=== PATIENT | male | born 2000 | race American Indian/Alaskan Native ===

== ENCOUNTER 2022-01-25 22:00 | Inpatient (IN) | payer OTHER ==
[2022-01-25] MEDS ORDERED: IBUPROFEN 800 MG TAB PO ONE (23:04)
--- NOTE | 2022-01-25 23:27 | XRay Report ---
Right ankle 2 views INDICATION: Right ankle pain following injury IMPRESSION: Severe dislocation of the right ankle with posterior displacement of the talar head with respect to the tibial plafond. Several tiny avulsion fractures are identified along the anterior aspe ct of the joint. There is a displaced fracture involving the distal metaphysis of the right fibula. Signer Name: Mani Limon MD Signed: 01/25/2022 11:23 PM Workstation Name: [id number]
[2022-01-25] MEDS ORDERED: propofoL 200 MG/20 ML VIAL IV ONE (23:41)
[2022-01-26] MEDS ORDERED: SODIUM CHLORIDE 0.9% 1000 ML 1,000 ML ONE (00:08)
[2022-01-26] MEDS ORDERED: KETAMINE 500 MG/5 ML VIAL MDV IV ONE (00:41)
--- NOTE | 2022-01-26 00:55 | XRay Report ---
Right ankle single view INDICATION: Right ankle pain IMPRESSION: Persistent dislocation of the right ankle. Signer Name: Mani Limon MD Signed: 01/26/2022 12:50 AM Workstation Name: [email or web address]
--- NOTE | 2022-01-26 01:37 | XRay Report ---
Right ankle 2 views INDICATION: Right ankle pain following injury IMPRESSION: Improved anatomic alignment of the ankle following reduction. Comminuted fracture of the distal fibular metaphysis. Overlying cast noted. Signer Name: Mani Limon MD Signed: 01/26/2022 1:32 AM Workstation Name: [employer]
--- NOTE | 2022-01-26 02:52 | Emergency Department Report ---
ED Lower Extremity HPI - General Chief Complaint: Extremity Injury, Lower Stated Complaint: RT ANKLE PAIN Time Seen by Provider: 01/25/22 22:10 Source: patient, EMS Mode of arrival: Stretcher Limitations: Physical Limitation - History of Present Illness Initial Comments: Patient is a 21-year-old male brought in from [facility] for evaluation of right ankle pain after twisting it while attempting to get out of bed. Complaint: ankle injury -: This afternoon Injury: Ankle: Right Place: other (Detention) Severity: severe Severity scale (0 -10): 10 Improves With: nothing Worsens With: movement, palpation Context: other (Exact mechanism unclear however patient states he twisted his ankle) Associated Symptoms: swelling, unable to bear weight - Related Data Allergies Allergy/AdvReac Type Severity Reaction Status Date / Time No Known Allergies Allergy Verified 01/25/22 23:33 ED Review of Systems ROS: Stated complaint: RT ANKLE PAIN Other details as noted in HPI Comment: All other systems reviewed and negative Constitutional: denies: chills, fever Respiratory: denies: cough, shortness of breath, wheezing Cardiovascular: denies: chest pain, palpitations Gastrointestinal: denies: abdominal pain, nausea, diarrhea Genitourinary: denies: urgency, dysuria Skin: denies: rash, lesions Neurological: denies: headache, weakness, paresthesias Psychiatric: denies: anxiety, depression Hematological/Lymphatic: denies: easy bleeding, easy bruising ED Past Medical Hx - Past Medical History Previous Medical History?: No Hx Psychiatric Treatment: Yes (Schizophrenia) - Surgical History Past Surgical History?: No ED Physical Exam - General Limitations: Physical Limitation General appearance: alert, in no apparent distress, obese - Head Head exam: Present: atraumatic, normocephalic - Eye Eye exam: Present: normal appearance, EOMI - Respiratory Respiratory exam: Present: normal lung sounds bilaterally. Absent: respiratory distress - Cardiovascular Cardiovascular Exam: Present: regular rate, normal rhythm. Absent: systolic murmur, diastolic murmur, rubs, gallop - GI/Abdominal GI/Abdominal exam: Present: soft, normal bowel sounds - Rectal Rectal exam: Present: deferred - Extremities Exam Extremities exam: Present: other (Diffuse swelling and tenderness to right ankle. DP and PT pulses intact.) - Neurological Exam Neurological exam: Present: alert, oriented X3 - Psychiatric Psychiatric exam: Present: normal affect, normal mood - Skin Skin exam: Present: warm, dry, intact ED Course Vital Signs 01/25/22 01/25/22 01/25/22 22:45 22:51 23:01 Temperature 99.1 F Pulse Rate 82 Respiratory 18 Rate Blood Pressure 162/62 Blood Pressure 139/71 [Right] O2 Sat by Pulse 96 100 98 Oximetry 01/25/22 01/25/22 01/25/22 23:15 23:31 23:45 Temperature Pulse Rate Respiratory Rate Blood Pressure 148/86 148/86 148/86 Blood Pressure [Right] O2 Sat by Pulse 99 100 99 Oximetry 01/26/22 01/26/22 01/26/22 00:01 00:15 00:25 Temperature 98.7 F Pulse Rate 76 87 78 Respiratory 17 15 18 Rate Blood Pressure 156/89 166/109 Blood Pressure 116/109 [Right] O2 Sat by Pulse 99 99 98 Oximetry 01/26/22 01/26/22 01/26/22 00:28 00:31 00:45 Temperature Pulse Rate 78 115 H 97 H Respiratory 18 22 17 Rate Blood Pressure 180/112 146/115 Blood Pressure 116/108 [Right] O2 Sat by Pulse 100 99 99 Oximetry 01/26/22 01/26/22 01/26/22 01:01 01:15 01:16 Temperature Pulse Rate 113 H 100 H 94 H Respiratory 12 12 12 Rate Blood Pressure 167/63 138/96 Blood Pressure [Right] O2 Sat by Pulse 100 100 Oximetry 01/26/22 01:31 Temperature Pulse Rate Respiratory 21 Rate Blood Pressure 144/88 Blood Pressure [Right] O2 Sat by Pulse 100 Oximetry - Moderate Sedation Indications: fracture/dislocation redu ASA Class: I Mallampati Airway Score: 2 Preparation: registered nurse cardiac applied, pulse oximeter, supplemental O2 applied, reversal agents at bedside, suction/airway equipment at bedside, IV secured Ketamine: IV (These were 2 separate conscious sedations. Initially propofol was used however patient would flail during the reduction which was unsuccessful. Ketamine used during the second sedation resulting in successful reduction.) Ketamine Dose: 145 IV Propofol Dose (mgs): 190 Complications: none Patient Tolerated Procedure: well - Orthopedic Joint Reduction Joint #1 Consent Obtained: written consent Time Out Performed: Yes Side: right Joint Reduction Location: ankle Analgesia: moderate sedation Technique Used: traction/counter-traction Post-Reduction Neuro Exam: intact Post-Reduction Vascular Exam: intact Post Reduction X-Ray Obtained: Yes Post Reduction X-Ray Results: reduced Splint Applied: Yes Patient Tolerated Procedure: well - Orthopedic Splinting/Casting Injury #1 Side: right Lower Extremity Injury Location: ankle Lower Extremity Immobilizer: posterior splint, stirrup splint ED Lower Extremity MDM - Medical Decision Making Ankle reduced in the emergency department. I discussed case with on-call orthopedist Dr. Campoverde. Request admission to hospital service and will evaluate later today. Critical care attestation.: If time is entered above; I have spent that time in minutes in the direct care of this critically ill patient, excluding procedure time. ED Disposition Clinical Impression: Dislocation of ankle, right, closed, Closed right fibular fracture Disposition: ADMITTED INPATIENT Is pt being admited?: Yes Does the pt Need Aspirin: No Condition: Stable Referrals: PRIMARY CARE, [Primary Care Provider] - 3-5 Days
[2022-01-26] MEDS ORDERED: ACETAMINOPHEN 325 MG TAB PO PRN (03:09)
[2022-01-26] MEDS ORDERED: MAGNESIUM HYDROXIDE (MOM) ORAL LIQD UDC PO PRN (03:09)
[2022-01-26] MEDS ORDERED: ONDANSETRON 4 MG/2 ML INJ IV PRN (03:09)
[2022-01-26] MEDS ORDERED: SODIUM CHLORIDE 0.9% 1000 ML 1,000 ML IV SCH (03:15)
[2022-01-26 03:16] LABS: Basophils # (Auto) 0.1 K/mm3 (0.0-0.1); Basophils % (Auto) 0.5 % (0.0-1.8); Eosinophils # (Auto) 0.1 K/mm3 (0.0-0.4); Eosinophils % (Auto) 0.8 % (0.0-4.3); Hematocrit 40.3 % (35.5-45.6); Hemoglobin 12.8 gm/dl (11.8-15.2); Lymphocytes # (Auto) 1.4 K/mm3 (1.2-5.4); Lymphocytes % (Auto) 12.4 % (13.4-35.0); Mean Corpuscular HGB Conc 32 % (32-34); Mean Corpuscular Volume 87 fl (84-94); Monocytes # (Auto) 0.7 K/mm3 (0.0-0.8); Monocytes % (Auto) 6.4 % (0.0-7.3); Platelet Count 274 K/mm3 (140-440); Red Blood Count 4.66 M/mm3 (3.65-5.03); Red Cell Distribution Width 15.7 % (13.2-15.2)
[2022-01-26 03:25] LABS: INR 0.98 (0.87-1.13)
--- NOTE | 2022-01-26 03:31 | History and Physical Report ---
History of Present Illness Date of examination: 01/26/22 Date of admission: 01/26/2022 Chief complaint: Right ankle Pain History of present illness: 21-year-old -Gren[place] male with no significant past medical history currently incarcerated at [facility] brought into the emergency room today for evaluation of right ankle pain. Patient states he was attempting to get out of his bed when he suddenly twisted his ankle he has been having severe pain since then. He denies any other complaints at this time. Denies any headache or dizziness and denies having any head injury. Work-up in the emergency room today including x-ray of the right ankle reveals severe dislocation of the right ankle with posterior displacement of the talar head . There is a displaced fracture involving the distal metaphysis of the right fibula. Fracture was successfully reduced in the emergency room. Orthopedic surgeon was also consulted by the ER physician. Past History Past Medical History: other (Bipolar disorder, schizophrenia) Past Surgical History: No surgical history Social history: no significant social history Family history: no significant family history Medications and Allergies Allergies Allergy/AdvReac Type Severity Reaction Status Date / Time shellfish derived Allergy Mild Angioedema Verified 01/26/22 03:01 tree nut Allergy Mild Angioedema Verified 01/26/22 03:02 Active Meds: Active Medications Acetaminophen (Acetaminophen 325 Mg Tab) 650 mg PO Q4H PRN PRN Reason: Pain MILD(1-3)/Fever >100.5/IRVIN Sodium Chloride (Nacl 0.9% 1000 Ml) 1,000 mls @ 75 mls/hr IV DIRECT MEENA Magnesium Hydroxide (Magnesium Hydroxide (Mom) Oral Liqd Udc) 30 ml PO Q4H PRN PRN Reason: Constipation Morphine Sulfate (Morphine 2 Mg/1 Ml Inj) 2 mg IV Q4H PRN PRN Reason: Pain, Moderate (4-6) Morphine Sulfate (Morphine 4 Mg/1 Ml Inj) 4 mg IV Q4H PRN PRN Reason: Pain , Severe (7-10) Ondansetron HCl (Ondansetron 4 Mg/2 Ml Inj) 4 mg IV Q8H PRN PRN Reason: Nausea And Vomiting Sodium Chloride (Sodium Chloride 0.9% 10 Ml Flush Syringe) 10 ml IV BID MEENA Sodium Chloride (Sodium Chloride 0.9% 10 Ml Flush Syringe) 10 ml IV PRN PRN PRN Reason: LINE FLUSH Review of Systems Constitutional: no fever, no chills Ears, nose, mouth and throat: no nasal congestion, no sore throat Cardiovascular: no chest pain, no palpitations Respiratory: no cough, no shortness of breath Gastrointestinal: no abdominal pain, no nausea, no vomiting, no diarrhea Genitourinary Male: no dysuria, no hematuria, no flank pain, no nocturia, no genital pain Musculoskeletal: no neck pain, no low back pain Integumentary: no rash, no pruritis Neurological: no headaches, no confusion Psychiatric: no anxiety, no depression Endocrine: no polyphagia, no polydipsia, no polyuria, no nocturia Exam - Constitutional Vitals: Temp Pulse Resp BP Pulse Ox 98.7 F 94 H 21 139/91 100 01/26/22 00:25 01/26/22 01:16 01/26/22 03:01 01/26/22 03:01 01/26/22 03:01 General appearance: Present: no acute distress, well-nourished, obese - EENT Eyes: Present: PERRL, EOM intact. Absent: scleral icterus ENT: hearing intact, clear oral mucosa, dentition normal - Neck Neck: Present: supple, normal ROM - Respiratory Respiratory effort: normal Respiratory: bilateral: CTA - Cardiovascular Rhythm: regular Heart Sounds: Present: S1 & S2. Absent: systolic murmur, diastolic murmur - Extremities Extremities: no ischemia, pulses intact, pulses symmetrical, No edema, normal temperature, normal color, Full ROM Peripheral Pulses: within normal limits - Abdominal General gastrointestinal: Present: soft, non-tender, non-distended, normal bowel sounds. Absent: mass - Integumentary Integumentary: Present: clear, warm, dry, normal turgor. Absent: rash - Musculoskeletal Musculoskeletal: strength equal bilaterally - Psychiatric Psychiatric: appropriate mood/affect, intact judgment & insight, memory intact, cooperative - Neurologic Neurologic: CNII-XII intact, no focal deficits, moves all extremities Results - Labs CBC & Chem 7: 01/26/22 02:24 01/26/22 02:24 Assessment and Plan - Patient Problems (1) Dislocation of ankle, right, closed Current Visit: Yes Status: Acute Plan to address problem: Dislocation and fracture reduced in the ER. Patient placed on analgesic medication. Consult placed to orthopedic surgeon for further evaluation. (2) DVT prophylaxis Current Visit: Yes Status: Acute Plan to address problem: Patient placed on sequential compression device. (3) Full code status Current Visit: Yes Status: Acute Plan to address problem: Patient is full code.
[2022-01-26 03:33] LABS: Alanine Aminotransferase 17 units/L (7-56); Albumin 3.7 g/dL (3.9-5); BUN/Creatinine Ratio 10; Blood Urea Nitrogen 8 mg/dL (9-20); Calcium 8.7 mg/dL (8.4-10.2); Hemolysis Index 4
[2022-01-26 03:36] LABS: Bilirubin,Direct < 0.2 mg/dL (0-0.2)
--- NOTE | 2022-01-26 10:22 | Consultation ---
History of Present Illness - HPI Consult date: 01/26/22 History of present illness: ORTHOPAEDIC CONSULT Assessment: 1. Posterior ankle dislocation (tibiotalar) with isolated fracture fibular shaft distal one third , RIGHT ankle 2. Morbidly obese young adult male (incarcerated ) with deconditioning; RECOMMENDATIONS : 1. Apply fracture boot (will need size 2XL or 3XL );(can be worn with or without a sock or Cezar wrap ) 2. Gait training with crutches; PT will have to educate NOW. 3. LORTAB 5/325 1 tab PO q 6hrs as needed for fracture pain for the next 7 days minimum; 4. F/U in the ortho OFFICE in 2 weeks with new ankle films; Discussion: This is a 21 year-old -[place] male inmate who somehow tripped and fell last evening while getting up from a supine position sustaining a twisting injury to the right ankle. He was brought to the emergency room at [facility] where x-rays revealed a posterior dislocation of the talus with respect to the tibia and a proximal diaphyseal fracture of the fibula at the distal one third. Emergency room physician adequately reduce the ankle joint and applied a posterior splint. Was then admitted by the hospitalist for overnight observation. Lamination today at the bedside shows a young adult male large frame morbidly obese. Is a posterior splint in place. Mild to moderate swelling laterally and toes are neurovascularly intact. Xrays post reduction , show what appears to be a stable mortise with a short oblique fracture at the junction of the middle and distal one third of the fibula. No other fractures or dislocations are seen. Past History Past Medical History: other (Bipolar disorder, schizophrenia) Past Surgical History: No surgical history Social history: no significant social history Family history: no significant family history Medications and Allergies Allergies Allergy/AdvReac Type Severity Reaction Status Date / Time shellfish derived Allergy Mild Angioedema Verified 01/26/22 03:01 tree nut Allergy Mild Angioedema Verified 01/26/22 03:02 Active Meds: Active Medications Acetaminophen (Acetaminophen 325 Mg Tab) 650 mg PO Q4H PRN PRN Reason: Pain MILD(1-3)/Fever >100.5/IRVIN Sodium Chloride (Nacl 0.9% 1000 Ml) 1,000 mls @ 75 mls/hr IV DIRECT MEENA Last Admin: 04/13/22 04:56 Dose: 75 mls/hr Magnesium Hydroxide (Magnesium Hydroxide (Mom) Oral Liqd Udc) 30 ml PO Q4H PRN PRN Reason: Constipation Morphine Sulfate (Morphine 2 Mg/1 Ml Inj) 2 mg IV Q4H PRN PRN Reason: Pain, Moderate (4-6) Morphine Sulfate (Morphine 4 Mg/1 Ml Inj) 4 mg IV Q4H PRN PRN Reason: Pain , Severe (7-10) Ondansetron HCl (Ondansetron 4 Mg/2 Ml Inj) 4 mg IV Q8H PRN PRN Reason: Nausea And Vomiting Sodium Chloride (Sodium Chloride 0.9% 10 Ml Flush Syringe) 10 ml IV BID MEENA Last Admin: 01/26/22 09:23 Dose: 10 ml Sodium Chloride (Sodium Chloride 0.9% 10 Ml Flush Syringe) 10 ml IV PRN PRN PRN Reason: LINE FLUSH
--- NOTE | 2022-01-26 17:05 | Progress Note ---
Assessment and Plan Assessment and plan: 21-year-old -[place]vad[place] male with no significant past medical history currently incarcerated at [facility] brought into the emergency room today for evaluation of right ankle pain. Patient states he was attempting to get out of his bed when he suddenly twisted his ankle he has been having severe pain since then. He denies any other complaints at this time. Denies any headache or dizziness and denies having any head injury. Work-up in the emergency room today including x-ray of the right ankle reveals severe dislocation of the right ankle with posterior displacement of the talar head . There is a displaced fracture involving the distal metaphysis of the right fibula. Fracture was successfully reduced in the emergency room. Orthopedic surgeon was also consulted by the ER physician. (1) fracture of dislocation of ankle, right, closed Current Visit: Yes Status: Acute Plan to address problem: Dislocation and fracture reduced in the ER and a plaster applied. Patient placed on analgesic medication. Several orthopedic in consultation and finds the fracture dislocation is appropriately reduced. Orthopedic recommendations: 1. Posterior ankle dislocation (tibiotalar) with isolated fracture fibular shaft distal one third , RIGHT ankle RECOMMENDATIONS : 1. Apply fracture boot (will need size 2XL or 3XL );(can be worn with or without a sock or Cezar wrap ) 2. Gait training with crutches; PT will have to educate NOW. 3. LORTAB 5/325 1 tab PO q 6hrs as needed for fracture pain for the next 7 days minimum; 4. F/U in the ortho OFFICE in 2 weeks with new ankle films; (2) DVT prophylaxis Current Visit: Yes Status: Acute Plan to address problem: Patient placed on sequential compression device. (3) Full code status Current Visit: Yes Status: Acute Plan to address problem: Patient is full code. Disposition: Patient could not be discharged back to halfway today since a fracture boot needs to be applied and PT has to perform a gait training before discharge. I spoke to the nurse as well as family caseworker but PT not available this a fternoon to gait train the patient and unfortunately patient will have to stay until tomorrow to get this done.. History Interval history: Patient is extremity obese, sleeping, easily arousable, no acute distress. Right ankle plaster in place. Discharge is pending fracture boot and PT training before discharge back to halfway. Hospitalist Physical - Constitutional Vitals: Temp Pulse Resp BP Pulse Ox 98.9 F 87 24 150/86 99 01/26/22 11:59 01/26/22 11:59 01/26/22 11:59 01/26/22 11:59 01/26/22 11:59 General appearance: Present: no acute distress, obese (Extremely obese) - EENT Eyes: Present: PERRL, EOM intact ENT: hearing intact - Neck Neck: Present: supple - Respiratory Respiratory effort: normal Respiratory: bilateral: CTA - Cardiovascular Rhythm: regular - Extremities Extremity abnormal: other (Right ankle plaster in place.) - Abdominal General gastrointestinal: soft, non-tender - Neurologic Neurologic: no focal deficits, moves all extremities Results - Labs CBC & Chem 7: 01/26/22 02:24 01/26/22 02:24 Labs: Laboratory Last Values WBC 11.0 K/mm3 (4.5-11.0) 01/26/22 02:24 RBC 4.66 M/mm3 (3.65-5.03) 01/26/22 02:24 Hgb 12.8 gm/dl (11.8-15.2) 01/26/22 02:24 Hct 40.3 % (35.5-45.6) 01/26/22 02:24 MCV 87 fl (84-94) 01/26/22 02:24 MCH 27 pg (28-32) L 01/26/22 02:24 MCHC 32 % (32-34) 01/26/22 02:24 RDW 15.7 % (13.2-15.2) H 01/26/22 02:24 Plt Count 274 K/mm3 (140-440) 01/26/22 02:24 Lymph % (Auto) 12.4 % (13.4-35.0) L 01/26/22 02:24 [place] % (Auto) 6.4 % (0.0-7.3) 01/26/22 02:24 Eos % (Auto) 0.8 % (0.0-4.3) 01/26/22 02:24 Baso % (Auto) 0.5 % (0.0-1.8) 01/26/22 02:24 Lymph # (Auto) 1.4 K/mm3 (1.2-5.4) 01/26/22 02:24 [place] # (Auto) 0.7 K/mm3 (0.0-0.8) 01/26/22 02:24 Eos # (Auto) 0.1 K/mm3 (0.0-0.4) 01/26/22 02:24 Baso # (Auto) 0.1 K/mm3 (0.0-0.1) 01/26/22 02:24 Seg Neutrophils % 79.9 % (40.0-70.0) H 01/26/22 02:24 Seg Neutrophils # 8.8 K/mm3 (1.8-7.7) H 01/26/22 02:24 PT 14.1 Sec. (12.2-14.9) 01/26/22 02:24 INR 0.98 (0.87-1.13) 01/26/22 02:24 Sodium 137 mmol/L (137-145) 01/26/22 02:24 Potassium 3.8 mmol/L (3.6-5.0) 01/26/22 02:24 Chloride 101.8 mmol/L (98-107) 01/26/22 02:24 Carbon Dioxide 21 mmol/L (22-30) L 01/26/22 02:24 Anion Gap 18 mmol/L 01/26/22 02:24 BUN 8 mg/dL (9-20) L 01/26/22 02:24 Creatinine 0.8 mg/dL (0.8-1.3) 01/26/22 02:24 Estimated GFR > 60 ml/min 01/26/22 02:24 BUN/Creatinine Ratio 10 % 01/26/22 02:24 Glucose 92 mg/dL (75-100) 01/26/22 02:24 Calcium 8.7 mg/dL (8.4-10.2) 01/26/22 02:24 Total Bilirubin 0.60 mg/dL (0.1-1.2) 01/26/22 02:24 Direct Bilirubin < 0.2 mg/dL (0-0.2) 01/26/22 02:24 Indirect Bilirubin 0.4 mg/dL 01/26/22 02:24 AST 18 units/L (5-40) 01/26/22 02:24 ALT 17 units/L (7-56) 01/26/22 02:24 Alkaline Phosphatase 132 units/L (35-129) H 01/26/22 02:24 Total Protein 6.6 g/dL (6.3-8.2) 01/26/22 02:24 Albumin 3.7 g/dL (3.9-5) L 01/26/22 02:24 Albumin/Globulin Ratio 1.3 % 01/26/22 02:24 Blood Type AB POSITIVE 01/26/22 02:24 Antibody Screen Negative 01/26/22 02:24 [place]/IV: Voiding Method Urinal Active Medications - Current Medications Current Medications: Generic Name Dose Route Start Last Admin Trade Name Freq PRN Reason Stop Dose Admin Acetaminophen 650 mg 01/26/22 03:09 Acetaminophen 325 Mg Tab PO Q4H PRN Pain MILD(1-3)/Fever >100.5/IRVIN Sodium Chloride 1,000 mls @ 75 mls/hr 01/26/22 03:15 01/26/22 04:56 Nacl 0.9% 1000 Ml IV 75 mls/hr DIRECT MEENA Administration Magnesium Hydroxide 30 ml 01/26/22 03:09 Magnesium Hydroxide (Mom) Oral Liqd Udc PO Q4H PRN Constipation Morphine Sulfate 2 mg 01/26/22 03:09 Morphine 2 Mg/1 Ml Inj IV Q4H PRN Pain, Moderate (4-6) Morphine Sulfate 4 mg 01/26/22 03:09 Morphine 4 Mg/1 Ml Inj IV Q4H PRN Pain , Severe (7-10) Ondansetron HCl 4 mg 01/26/22 03:09 Ondansetron 4 Mg/2 Ml Inj IV Q8H PRN Nausea And Vomiting Sodium Chloride 10 ml 01/26/22 10:00 01/26/22 09:23 Sodium Chloride 0.9% 10 Ml Flush Syringe IV 10 ml BID MEENA Administration Sodium Chloride 10 ml 01/26/22 03:09 Sodium Chloride 0.9% 10 Ml Flush Syringe IV PRN PRN LINE FLUSH Nutrition/Malnutrition Assess - Dietary Evaluation Nutrition/Malnutrition Findings: Nutrition Notes Start: 01/26/22 11 :00 Freq: Status: Active Protocol: Document 01/26/22 11:00 GAMAL (Rec: 01/26/22 11:19 GAMAL [id number]) Nutrition Notes Need for Assessment generated from: dental technologist Initial or Follow up Assessment Other Pertinent Diagnosis R-Ankle disclocation/Fracture. Current Diet NPO (since 01/26 03:11). Labs/Tests 01/26: CO2 21, BUN 8. Pertinent Medications 01/26: Nutritionally unremarkable. 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 Weight Status Morbidly Obese Subjective/Other Information RD consult for skin risk assessment Pt currently on NPO. Pt is on Room Air, O2 saturation @ 98%, according to Physical Assessment History notes. Pt is incarcerated, according to History & Physical notes. Pt presents a close R-Ankle Dislocation/Fracture with no signs of concern for skin risk atr the time, according to Orthpedic Consultation notes. Percent of energy/protein needs met: Pt currently on NPO. Burn Absent Trauma Absent GI Symptoms None Food Allergy Yes Skin Integrity/Comment Assessment WNL. Current % PO Other Minimum of two criteria No #1 Nutrition Diagnosis No nutrition diagnosis at this time Comments: Will assess Pt's PO intake of meals at F/U. Is patient on ventilator? No Is Patient Ambulatory and/or Out of Bed Yes REE-(Dooly-St. Jeor-ambulatory/OOB) [ 3600.025 NUTR.[id number]] Kcal/Kg value to use for calculation 12 Approximate Energy Requirements Using 2104 kcal/Kg Calculation Used for Recommendations Kcal/kg Additional Notes Protein: 0.8-1 g/Kg AdjBW; 100 -125 g/day. Fluids: 1 ml/Kcal, or as per MD. Nutrition Intervention Change Diet Order: Advance to PO diet, as per MD. Follow-Up By: 02/04/22 Additional Comments Continue monitoring food tolerance, %PO intake of meals , and BM.
[2022-01-26] MEDS: MORPHINE 2 MG/1 ML INJ IV PRN ×2 (17:52→22:53)
[2022-01-27 06:23] LABS: Basophils # (Auto) 0.1 K/mm3 (0.0-0.1); Basophils % (Auto) 0.6 % (0.0-1.8); Eosinophils # (Auto) 0.2 K/mm3 (0.0-0.4); Eosinophils % (Auto) 2.2 % (0.0-4.3); Hematocrit 38.8 % (35.5-45.6); Hemoglobin 12.8 gm/dl (11.8-15.2); Lymphocytes % (Auto) 20.7 % (13.4-35.0); Mean Corpuscular HGB Conc 33 % (32-34); Mean Corpuscular Volume 85 fl (84-94); Monocytes # (Auto) 1.1 K/mm3 (0.0-0.8); Platelet Count 254 K/mm3 (140-440); Red Blood Count 4.57 M/mm3 (3.65-5.03); Red Cell Distribution Width 15.9 % (13.2-15.2)
[2022-01-27 06:42] LABS: BUN/Creatinine Ratio 9; Blood Urea Nitrogen 7 mg/dL (9-20); Calcium 8.2 mg/dL (8.4-10.2); Hemolysis Index 6
[2022-01-27 06:53] VITALS: BP 139/87
--- NOTE | 2022-01-27 13:46 | Discharge Summary ---
Providers - Providers Date of Admission: 01/26/22 03:20 Date of discharge: 01/27/22 Attending physician: MANFRED JOHNSON 01/26/22 03:09 Consult to Physician [CONS] Routine Comment: Dr. Dixon spoke with Dr. Campoverde @ [phone] Consulting Provider: REBECCA CAMPOVERDE Physician Instructions: Reason For Exam: Right ankle fracture 01/26/22 15:21 Physical Therapy Evaluation and Treat [CONS] Urgent Comment: Reason For Exam: right ankle fracture Date of last referral: 01/26/22 Primary care physician: PHARMACY MANAGER Hospitalization Reason for admission: Fracture right ankle Condition: Stable Procedures: Medical management with dressing and boot Hospital course: 21-year-old -[place] male with no significant past medical history currently incarcerated at [facility] brought into the emergency room today for evaluation of right ankle pain. Patient states he was attempting to get out of his bed when he suddenly twisted his ankle he has been having severe pain since then. He denies any other complaints at this time. Denies any headache or dizziness and denies having any head injury. Work-up in the emergency room today including x-ray of the right ankle reveals severe dislocation of the right ankle with posterior displacement of the talar head . There is a displaced fracture involving the distal metaphysis of the right fibula. Fracture was successfully reduced in the emergency room. Orthopedic surgeon was also consulted by the ER physician. (1) fracture of dislocation of ankle, right, closed Current Visit: Yes Status: Acute Plan to address problem: Dislocation and fracture reduced in the ER and a plaster applied. Patient placed on analgesic medication. Several orthopedic in consultation and finds the fracture dislocation is appropriately reduced. Orthopedic recommendations: 1. Posterior ankle dislocation (tibiotalar) with isolated fracture fibular shaft distal one third , RIGHT ankle RECOMMENDATIONS : 1. Apply fracture boot (will need size 2XL or 3XL );(can be worn with or without a sock or Cezar wrap ) 2. Gait training with crutches; PT consulted and note reviewed 3. LORTAB 5/325 1 tab PO q 6hrs as needed for fracture pain for the next 7 days minimum; 4. F/U in the ortho OFFICE in 2 weeks with new ankle films; Disposition: 30 STILL A PATIENT Final Discharge Diagnosis (Prints w/discharge instructions): Nondisplaced acute fracture distal right fibula with posterior ankle dislocation. Morbid obesity. History of bipolar disorder and schizophrenia Time spent for discharge: 34 min Core Measure Documentation - Palliative Care Palliative Care/ Comfort Measures: Not Applicable - Core Measures Any of the following diagnoses?: none Exam - Constitutional Vitals: Temp Pulse Resp BP Pulse Ox 98.7 F 83 22 139/87 96 01/27/22 05:46 01/27/22 05:46 01/27/22 05:46 01/27/22 05:46 01/27/22 05:46 General appearance: Present: no acute distress, obese - EENT Eyes: Present: PERRL, EOM intact ENT: hearing intact, clear oral mucosa - Neck Neck: Present: supple, normal ROM - Respiratory Respiratory effort: normal Respiratory: bilateral: CTA, diminished - Cardiovascular Rhythm: regular Heart Sounds: Present: S1 & S2 - Extremities Extremities: No edema, abnormal (Has a dressing on the right foot and ankle with boot) - Abdominal General gastrointestinal: Present: soft, non-tender Male genitourinary: Present: deferred - Rectal Rectal Exam: deferred - Integumentary Integumentary: Present: clear - Psychiatric Psychiatric: appropriate mood/affect - Neurologic Neurologic: no focal deficits Plan Activity: advance as tolerated, fall precautions Weight Bearing Status: Weight Bear as Tolerated Diet: regular, low fat, low cholesterol, low salt Durable Medical Equipment Needed Upon Discharge: Walker-Standard Follow up with: PRIMARY CARE, [Primary Care Provider] - 3-5 Days REBECCA CAMPOVERDE MD [Staff Physician] - 14 Days Prescriptions: HYDROcodone/APAP 5-325 [Dyer 5/325] 1 each PO Q6HR PRN #14 tablet PRN Reason: Pain
[2022-01-27] MEDS: MORPHINE 4 MG/1 ML INJ IV PRN ×2 (14:36→17:39)
== END 2022-01-27 17:57 | DRG 563 ==
LOC: ED 22:00 → EEVIPCON 22:00 → 3A 01-26 03:20
PROVIDERS: ADMIT Internal Medicine Geriatric Medicine; ATTEND Internal Medicine
PROC: 0SSFXZZ Reposition Right Ankle Joint, External Approach (ICD-10-PCS; principal; 2022-01-26)
DX: S82.401A Unspecified fracture of shaft of right fibula, initial encounter for closed fracture (principal); Z68.43 Body mass index [BMI] 50.0-59.9, adult; S82.891A Other fracture of right lower leg, initial encounter for closed fracture; S93.04XA Dislocation of right ankle joint, initial encounter; F20.9 Schizophrenia, unspecified; X58.XXXA Exposure to other specified factors, initial encounter; Y93.89 Activity, other specified; Y92.89 Other specified places as the place of occurrence of the external cause; Y99.8 Other external cause status; E66.01 Morbid (severe) obesity due to excess calories; F31.9 Bipolar disorder, unspecified; Z91.018 Allergy to other foods; Z91.013 Allergy to seafood
CPT/HCPCS: 36415; 80048; 80076; 85025; 85610; 86850; 86900; 86901; G0378; J3490; J7120; Q0162; J2270; J2704; J7030